=== PATIENT | female | born 1995 | race Caucasian/White ===

== ENCOUNTER 2020-01-26 08:29 | Emergency (ER) | payer OTHER ==
[~2020-01-26] VITALS: Ht 170.2 cm; Wt 56.7 kg
[2020-01-26] MEDS ORDERED: SILVER SULFADIA50 GM TOP (09:25)
[2020-01-26] MEDS ORDERED: ULTRAM50 MG PO (09:25)
[2020-01-26] MEDS ORDERED: MONDOXYNE NL100 MG PO (09:25)
== END 2020-01-26 09:47 | disposition home or self-care (01) ==
LOC: ER 08:29
DX: T25.221A Burn of second degree of right foot, initial encounter (principal); T23.262A Burn of second degree of back of left hand, initial encounter; X10.2XXA Contact with fats and cooking oils, initial encounter; Y93.89 Activity, other specified; Y92.89 Other specified places as the place of occurrence of the external cause; Y99.8 Other external cause status